=== PATIENT | male | born 1990 | race African-American/Black ===

== ENCOUNTER 2022-09-14 02:31 | Emergency (ER) | payer SELFPAY ==
[2022-09-14] MEDS ORDERED: THIAMINE 200 MG/2 ML INJ ONE (03:09)
[2022-09-14] MEDS ORDERED: FAMOTIDINE 20 MG/2 ML VIAL IV ONE (03:09)
[2022-09-14] MEDS ORDERED: NA CHLORIDE 0.9% 1,000 ML ONE (03:09)
[2022-09-14 04:18] LABS: Absolute Lymphocytes (CBC) 1.7 K/uL (0.7-4.9); Hematocrit 42.6 % (39.6-49.0); MCV 82.7 fL (80-100); MPV 8.7 fL (7.6-11.3); RBC Red Blood Cell Count 5.15 M/uL (4.33-5.43)
[2022-09-14 04:22] LABS: Protime INR 1.07
[2022-09-14 04:38] LABS: ALT/SGPT 39 U/L (16-61); AST/SGOT 24 U/L (15-37); Albumin 4.6 g/dL (3.4-5.0); Alkaline Phosphatase 66 U/L (45-117); BUN Blood Urea Nitrogen 10 mg/dL (7-18); Bicarbonate 22 mEq/L (21-32); Bilirubin Direct 0.2 mg/dL (0-0.2); Bilirubin Total 0.4 mg/dL (0.2-1.0); Glomerular Filtration Rate 66 ml/min (=/>90); Glucose Level 101 mg/dL (74-106); Potassium 3.1 mEq/L (3.5-5.1); Protein, Total 9.2 g/dL (6.4-8.2); Sodium Level 133 mEq/L (136-145)
--- NOTE | 2022-09-14 05:00 | EDPHYS ---
Physician Documentation [facility] Name: Basilio Mckeon Age: 32 yrs Sex: Male : 1990 Arrival Date: 09/14/2022 Time: : Bed 6 Private MD: ED Physician Mohit Smith HPI: 09/14 02:49 This 32 yrs old Male presents to ER via Ambulatory with complaints of ed Breathing Difficulty. 02:49 The patient has shortness of breath at rest. Onset: The symptoms/episode began/occurred ed just prior to arrival. Duration: The symptoms are continuous, but are steadily getting better. The patient's shortness of breath is aggravated by nothing, is alleviated by nothing. Associated signs and symptoms: The patient has no apparent associated signs or symptoms. Severity of symptoms: At their worst the symptoms were mild in the emergency department the symptoms are unchanged. The patient has not experienced similar symptoms in the past. Historical: - Allergies: 02:41 Ibuprofen; aa9 - PSHx: 02:41 None; aa9 - Immunization history:: Client reports having NOT received the Covid vaccine. ROS: 02:51 Constitutional: Negative for fever, chills, and weight loss, Eyes: Negative for injury, ed pain, redness, and discharge, ENT: Negative for injury, pain, and discharge, Neck: Negative for injury, pain, and swelling, Cardiovascular: Negative for chest pain, palpitations, and edema, Abdomen/GI: Negative for abdominal pain, nausea, vomiting, diarrhea, and constipation, Back: Negative for injury and pain, : Negative for injury, bleeding, discharge, and swelling, MS/Extremity: Negative for injury and deformity, Skin: Negative for injury, rash, and discoloration, Neuro: Negative for headache, weakness, numbness, tingling, and seizure, Psych: Negative for depression, anxiety, suicide ideation, homicidal ideation, and hallucinations, Allergy/Immunology: Negative for hives, rash, and allergies, Endocrine: Negative for neck swelling, polydipsia, polyuria, polyphagia, and marked weight changes, Hematologic/Lymphatic: Negative for swollen nodes, abnormal bleeding, and unusual bruising. 02:51 Respiratory: Positive for cough, shortness of breath, at rest. Exam: 02:52 Constitutional: This is a well developed, well nourished patient who is awake, alert, ed and in no acute distress. Head/Face: Normocephalic, atraumatic. Eyes: Pupils equal round and reactive to light, extra-ocular motions intact. Lids and lashes normal. Conjunctiva and sclera are non-icteric and not injected. Cornea within normal limits. Periorbital areas with no swelling, redness, or edema. ENT: Nares patent. No nasal discharge, no septal abnormalities noted. Tympanic membranes are normal and external auditory canals are clear. Oropharynx with no redness, swelling, or masses, exudates, or evidence of obstruction, uvula midline. Mucous membranes moist. Neck: Trachea midline, no thyromegaly or masses palpated, and no cervical lymphadenopathy. Supple, full range of motion without nuchal rigidity, or vertebral point tenderness. No Meningismus. Chest/axilla: Normal chest wall appearance and motion. Nontender with no deformity. No lesions are appreciated. Respiratory: Lungs have equal breath sounds bilaterally, clear to auscultation and percussion. No rales, rhonchi or wheezes noted. No increased work of breathing, no retractions or nasal flaring. Abdomen/GI: Soft, non-tender, with normal bowel sounds. No distension or tympany. No guarding or rebound. No evidence of tenderness throughout. Back: No spinal tenderness. No costovertebral tenderness. Full range of motion. Male : Normal genitalia with no discharge or lesions. Skin: Warm, dry with normal turgor. Normal color with no rashes, no lesions, and no evidence of cellulitis. MS/ Extremity: Pulses equal, no cyanosis. Neurovascular intact. Full, normal range of motion. Neuro: Awake and alert, GCS 15, oriented to person, place, time, and situation. Cranial nerves II-XII grossly intact. Motor strength 5/5 in all extremities. Sensory grossly intact. Cerebellar exam normal. Normal gait. Psych: Awake, alert, with orientation to person, place and time. Behavior, mood, and affect are within normal limits. 02:52 Cardiovascular: Rate: tachycardic, actual rate is 112 bpm, Rhythm: regular, Pulses: Pulses are 4+ in bilateral radial, brachial, femoral, popliteal, posterior tibial and and dorsalis pedis arteries.. Heart sounds: normal, Edema: is not appreciated, JVD: is not appreciated. 02:52 Neuro: Orientation: is normal, appropriate for stated age, no acute changes, Mentation: is normal, appropriate for stated age, no acute changes, Memory: is normal, appropriate for stated age, no acute changes, Cerebellar function: is grossly normal, Motor: is normal, is grossly normal based on the patient's age, no acute changes, moves all fours, strength is normal, Sensation: is normal. 03:09 ECG was reviewed by the Attending Physician. ed 03:30 Musculoskeletal/extremity: DVT Exam: No signs of deep vein thrombosis. no pain, no ed swelling, no tenderness, negative Homans' sign noted on exam, no appreciated bluish discoloration, no erythema, no increased warmth. Vital Signs: 02:39 BP 166 / 107; Pulse 112; Resp 34; Temp 97.6(O); Pulse Ox 100% on R/A; Weight 99.79 kg; aa9 Height 5 ft. 8 in. ; Pain 0/10; 05:07 BP 161 / 92; Pulse 101; Resp 21; Pulse Ox 100% on R/A; lg3 02:39 Body Mass Index 33.45 (99.79 kg, 172.72 cm) aa9 02:39 Pain Scale: Adult aa9 MDM: 02:42 Patient medically screened. ed 02:53 Differential diagnosis: asthma, Bronchitis CHF exacerbation, Chronic Obstructive ed Pulmonary Disease pulmonary edema, Unstable Angina. Antibiotic administration: Not indicated. Differential Diagnosis altered mental status. Immunization status:. Data reviewed: vital signs, nurses notes. Consideration of Admission/Observation Escalation of care including admission/observation considered. I considered the following discharge prescriptions or medication management in the emergency department Medications were administered in the Emergency Department. See MAR. Test considered but Not performed: Ultrasound no us le. Care significantly affected by the following chronic conditions: none. 05:00 ED course: more test needed, ct abd peplvis , fluids , refuses and wants to leave. [facility] 09/14 02:57 Order name: Acetaminophen; Complete Time: 04:58 ed 09/14 02:57 Order name: Basic Metabolic Panel; Complete Time: 04:58 [facility] 09/14 02:57 Order name: CBC with Diff; Complete Time: 04:58 [facility] 09/14 02:57 Order name: ETOH Level; Complete Time: 04:58 [facility] 09/14 02:57 Order name: Hepatic Function; Complete Time: 04:58 [facility] 09/14 02:57 Order name: PT-INR; Complete Time: 04:58 [facility] 09/14 02:57 Order name: Ptt, Activated; Complete Time: 04:58 [facility] 09/14 02:57 Order name: Salicylate; Complete Time: 04:58 [facility] 09/14 02:57 Order name: Chest Single View XRAY [facility] 09/14 02:57 Order name: EKG; Complete Time: 02:58 [facility] 09/14 02:57 Order name: EKG - Nurse/Tech; Complete Time: 03:00 [facility] 09/14 02:57 Order name: IV Saline Lock; Complete Time: 03:00 [facility] 09/14 02:57 Order name: Labs collected and sent; Complete Time: 03:12 [facility] 09/14 02:57 Order name: Suicide Screening ([place]); Complete Time: 03:00 [facility] 09/14 04:59 Order name: PO challenge: gatorade; Complete Time: 05:08 [facility] EC:09 Rate is 111 beats/min. Rhythm is regular. QRS [place] is Normal. NC interval is normal. ed QRS interval is normal. QT interval is normal. No Q waves. T waves are Normal. No ST changes noted. Clinical impression: Sinus tachycardia and No evidence of ischemia. Interpreted by me. Reviewed by me. Administered Medications: 03:12 Drug: Famotidine IVP 20 mg Route: IVP; Site: right antecubital; lg3 03:13 Drug: NS 0.9% IV 1000 ml Route: IV; Rate: 1 bolus; Site: right antecubital; lg3 03:13 Drug: Thiamine IV 100 mg Route: IV; Rate: per protocol; Site: right antecubital; lg3 05:08 Drug: Potassium PO Effervescent Tablet 50 mEq Route: PO; lg3 Disposition Summary: 09/14/22 05:00 Discharge Ordered Location: Home ed Problem: new ed Symptoms: have improved ed Condition: Stable ed Diagnosis - Alcohol abuse with intoxication ed - Essential (primary) hypertension ed - Dyspnea ed - Tobacco abuse counseling ed - Tobacco use ed - Elevated white blood cell count ed - Hypokalemia ed Followup: ed - With: Private Physician - When: 2 - 3 days - Reason: Recheck today's complaints, Continuance of care, Re-evaluation by your physician Discharge Instructions: - Discharge Summary Sheet ed - Alcohol Intoxication ed - Potassium Content of Foods ed - Hypertension, Adult ed - Steps to Quit Smoking ed - Alcohol Intoxication, Hawe-ey-Tart ed - Hypertension, Adult, Umiq-xn-Hsga ed - Steps to Quit Smoking, Koes-qs-Yxrz de - How to Take Your Blood Pressure, Givq-et-Rzxs ed - Hypokalemia ed - Managing Your Hypertension ed Forms: - Medication Reconciliation Form ed - Thank You Letter ed - Antibiotic Education ed - Prescription Opioid Use ed Prescriptions: - Norvasc 5 mg Oral Tablet - take 1 tablet by ORAL route once daily; 20 tablet; Refills: 0, Product ed Selection Permitted - Zofran 4 mg Oral Tablet - take 1 tablet by ORAL route every 12 hours As needed; 20 tablet; Refills: 0, ed Product Selection Permitted Signatures: Dispatcher [employer] Mohit Ly MD MD cha Gibson, Lacie RN RN lg3 Cierra Fernandez RN RN aa9 Corrections: (The following items were deleted from the chart) 02:41 02:41 Allergies: No Known Allergies; aa9 aa9
--- NOTE | 2022-09-14 05:00 | ER ---
Nurse's Notes [facility] Name: Basilio Mckeon Age: 32 yrs Sex: Male : 1990 Arrival Date: 09/14/2022 Time: 02: Bed 6 Private MD: Diagnosis: Alcohol abuse with intoxication;Essential (primary) hypertension;Dyspnea;Tobacco abuse counseling;Tobacco use;Elevated white blood cell count;Hypokalemia Presentation: 09/14 02:39 Chief complaint: Spouse and/or significant other states: He is having trouble aa9 breathing, it just started like an hour ago, he has been drinking bud light all day yesterday since 7 AM. Coronavirus screen: Vaccine status: Patient reports being unvaccinated. Ebola Screen: No symptoms or risks identified at this time. Initial Sepsis Screen: Does the patient meet any 2 criteria? RR > 20 per min. No. Patient's initial sepsis screen is negative. Does the patient have a suspected source of infection? No. Patient's initial sepsis screen is negative. Risk Assessment: Do you want to hurt yourself or someone else? Patient reports no desire to harm self or others. Onset of symptoms was September 14, 2022. 02:39 Method Of Arrival: Ambulatory aa9 02:39 Acuity: GENESIS 2 aa9 Triage Assessment: 02:41 General: Appears uncomfortable, obese, Behavior is cooperative, anxious. Pain: Denies aa9 pain. Neuro: Level of Consciousness is awake, alert, obeys commands, Oriented to person, place, time, situation. Cardiovascular: Patient's skin is warm and dry. Rhythm is sinus tachycardia. Respiratory: Reports shortness of breath at rest Onset: The symptoms/episode began/occurred suddenly, the patient has moderate shortness of breath Denies cough. GI: Abdomen is obese. : No signs and/or symptoms were reported regarding the genitourinary system. Derm: Skin is intact, is healthy with good turgor. Historical: - Allergies: 02:41 Ibuprofen; aa9 - PSHx: 02:41 None; aa9 - Immunization history:: Client reports having NOT received the Covid vaccine. Screenin:43 [facility] ED Fall Risk Assessment (Adult) History of falling in the last 3 months, aa9 including since admission No falls in past 3 months (0 pts) Confusion or Disorientation No (0 pts) Intoxicated or Sedated No (0 pts) Impaired Gait No (0 pts) Mobility Assist Device Used No (0 pt) Altered Elimination No (0 pt) Score/Fall Risk Level 0 - 2 = Low Risk Oriented to surroundings, Maintained a safe environment. Abuse screen: Denies threats or abuse. Denies injuries from another. Nutritional screening: No deficits noted. Tuberculosis screening: No symptoms or risk factors identified. Assessment: 02:42 Cardiovascular: Reports palpitations, shortness of breath, Denies chest pain. aa9 Respiratory: Airway is patent Respiratory effort is even, Respiratory pattern is tachypnea. 05:07 Reassessment: Patient appears in no apparent distress at this time. No changes from lg3 previously documented assessment. Patient and/or family updated on plan of care and expected duration. Pain level reassessed. Patient is alert, oriented x 3, equal unlabored respirations, skin warm/dry/pink. Patient states feeling better. Patient states symptoms have improved. Vital Signs: 02:39 BP 166 / 107; Pulse 112; Resp 34; Temp 97.6(O); Pulse Ox 100% on R/A; Weight 99.79 kg; aa9 Height 5 ft. 8 in. ; Pain 0/10; 05:07 BP 161 / 92; Pulse 101; Resp 21; Pulse Ox 100% on R/A; lg3 02:39 Body Mass Index 33.45 (99.79 kg, 172.72 cm) aa9 02:39 Pain Scale: Adult aa9 ED Course: 02:31 Patient arrived in ED. ja2 02:39 Cierra Fernandez, RN is Primary Nurse. aa9 02:41 Triage completed. aa9 02:41 Mohit Smith MD is Attending Physician. ed 02:42 Arm band placed on right wrist. aa9 02:43 Patient has correct armband on for positive identification. Placed in gown. Bed in low aa9 position. Call light in reach. Side rails up X2. Client placed on continuous cardiac and pulse oximetry monitoring. NIBP monitoring applied. 03:12 Inserted saline lock: 20 gauge in right antecubital area, using aseptic technique. lg3 Blood collected. 03:12 Acetaminophen Sent. lg3 03:12 Basic Metabolic Panel Sent. lg3 03:12 CBC with Diff Sent. lg3 03:12 ETOH Level Sent. lg3 03:12 Hepatic Function Sent. lg3 03:12 PT-INR Sent. lg3 03:12 Ptt, Activated Sent. lg3 03:12 Salicylate Sent. lg3 03:15 Chest Single View XRAY In Process Unspecified. EDMS 05:07 No provider procedures requiring assistance completed. IV discontinued, intact, lg3 bleeding controlled, No redness/swelling at site. Pressure dressing applied. Administered Medications: 03:12 Drug: Famotidine IVP 20 mg Route: IVP; Site: right antecubital; lg3 03:13 Drug: NS 0.9% IV 1000 ml Route: IV; Rate: 1 bolus; Site: right antecubital; lg3 03:13 Drug: Thiamine IV 100 mg Route: IV; Rate: per protocol; Site: right antecubital; lg3 05:08 Drug: Potassium PO Effervescent Tablet 50 mEq Route: PO; lg3 Medication: 05:08 VIS not applicable for this client. lg3 Outcome: 05:00 Discharge ordered by MD. ward 05:07 Discharged to home ambulatory. lg3 05:07 Condition: stable 05:07 Discharge instructions given to patient, Instructed on discharge instructions, follow up and referral plans. medication usage, Demonstrated understanding of instructions, follow-up care, medications, Prescriptions given X 2. 05:08 Patient left the ED. lg3 Signatures: Dispatcher [employer] EDWV Mohit Smith MD MD cha Gibson, Lacie, RN RN lg3 Teresa Hernandez Aylin, RN RN aa9 Corrections: (The following items were deleted from the chart) 02:41 02:41 Allergies: No Known Allergies; aa9 aa9
[2022-09-14] MEDS ORDERED: POTASSIUM 25 MEQ EFFERV TAB ONE (05:06)
[2022-09-14 05:18] VITALS: TEMP 97.6; O2SAT 100
[2022-09-14 05:30] VITALS: BP 161/92
--- NOTE | 2022-09-15 07:03 | EKG ---
Test Date: 2022-09-14 Test Time: 02:42:25 Swift Tender: EDGAR MEASUREMENT RESULTS: Intervals: Rate: 111 TN: 152 QRSD: 86 QT: 380 QTc: 516 Garrett: P: 62 TN: 152 QRS: 92 T: 44 INTERPRETIVE STATEMENTS: Sinus tachycardia Otherwise normal ECG No previous ECG available for comparison Electronically Signed On 09-15-22 07:00:11 CDT by Ernesto Atkinson
--- NOTE | 2022-09-15 09:33 | RAD REPORT ---
EXAM DESCRIPTION: XR CHEST 1 VIEW CLINICAL HISTORY: Male, 32 years old, COUGH TECHNIQUE: 1 view COMPARISON: None. FINDINGS: Support devices: Overlying telemetry leads. Lungs/pleura: No consolidation, pleural effusion, or pneumothorax. Heart and mediastinum: Cardiomediastinal silhouette has normal size and configuration. Other: No acute osseous findings. IMPRESSION: No acute cardiopulmonary findings. Electronically signed by: Nas Singh MD 09/14/2022 3:22 AM CDT Due to temporary technical issues with the PACS/Fluency reporting system, reports are being signed by the in house radiologists without review as a courtesy to insure prompt reporting. The interpreting radiologist is fully responsible for the content of the report.
== END 2022-09-14 05:08 | disposition home or self-care (01) ==
LOC: ER 02:31
DX: F10.129 Alcohol abuse with intoxication, unspecified (principal); E87.6 Hypokalemia; I10 Essential (primary) hypertension; D72.829 Elevated white blood cell count, unspecified; Z72.0 Tobacco use; Z71.6 Tobacco abuse counseling
CPT/HCPCS: 36415; 71045; 80048; 80076; 85025; 85610; 85730; 93005; G0480; J3411; J7030

== ENCOUNTER 2022-09-15 08:42 | Emergency (ER) | payer SELFPAY ==
[2022-09-15 09:27] LABS: Absolute Lymphocytes (CBC) 2.2 K/uL (0.7-4.9); Hematocrit 42.1 % (39.6-49.0); Lymphocytes % 31.6 % (15.3-44.8); MCV 82.5 fL (80-100); MPV 8.1 fL (7.6-11.3); RBC Red Blood Cell Count 5.11 M/uL (4.33-5.43)
[2022-09-15 09:58] LABS: Bilirubin Direct 0.1 mg/dL (0-0.2); Bilirubin Total 0.5 mg/dL (0.2-1.0); Magnesium 1.9 mg/dL (1.6-2.4); Potassium 3.9 mEq/L (3.5-5.1); Protein, Total 8.3 g/dL (6.4-8.2); Thyroid Stimulating Hormone 0.817 uIU/mL (0.358-3.740); Troponin High Sensitivity 7.2 pg/mL (<58.9)
[2022-09-15] MEDS ORDERED: NA CHLORIDE 0.9% 1,000 ML ONE (10:02)
[2022-09-15] MEDS ORDERED: LORazepam 2 MG/ML VIAL ONE (10:02)
--- NOTE | 2022-09-15 10:27 | RAD REPORT ---
EXAM DESCRIPTION: RADChest Single View09/15/2022 9:56 am CLINICAL HISTORY: PALPITATIONS COMPARISON: Chest Single View dated 09/14/2022 TECHNIQUE: Portable AP view of the chest. FINDINGS: The lungs are clear. No pneumothorax or effusion. The cardiomediastinal contours are unrem arkable. IMPRESSION: No acute cardiopulmonary process.
--- NOTE | 2022-09-15 11:04 | ER ---
Nurse's Notes [facility] Name: Basliio Mckeon Age: 32 yrs Sex: Male : 1990 Arrival Date: 09/15/2022 Time: 08:42 Bed 16 Private MD: Diagnosis: Palpitations Presentation: 09/15 08:49 Chief complaint: Patient states: C/O shortness of breathing \T\ palpitations. Coronavirus ld1 screen: At this time, the client does not indicate any symptoms associated with coronavirus-19. Ebola Screen: No symptoms or risks identified at this time. Initial Sepsis Screen: Does the patient meet any 2 criteria? No. Patient's initial sepsis screen is negative. Does the patient have a suspected source of infection? No. Patient's initial sepsis screen is negative. Risk Assessment: Do you want to hurt yourself or someone else? Patient reports no desire to harm self or others. Onset of symptoms was September 15, 2022. 08:49 Method Of Arrival: Ambulatory ld1 08:49 Acuity: GENESIS 3 ld1 Triage Assessment: 08:50 General: Appears in no apparent distress. comfortable, Behavior is calm, cooperative, ld1 appropriate for age. Pain: Denies pain. EENT: No signs and/or symptoms were reported regarding the EENT system. Neuro: Level of Consciousness is awake, alert, obeys commands, Oriented to person, place, time, situation. Cardiovascular: Capillary refill < 3 seconds. Respiratory: Reports shortness of breath at rest on exertion Airway is patent Respiratory effort is even, unlabored, Onset: The symptoms/episode began/occurred suddenly, the patient has mild shortness of breath. GI: Abdomen is round non-distended. : No signs and/or symptoms were reported regarding the genitourinary system. Derm: No signs and/or symptoms reported regarding the dermatologic system. Musculoskeletal: No signs and/or symptoms reported regarding the musculoskeletal system. Historical: - Allergies: 08:50 Ibuprofen; ld1 - Home Meds: 08:50 None [Active]; ld1 - PMHx: 08:50 None; ld1 - PSHx: 08:50 None; ld1 - Immunization history:: Adult Immunizations up to date, Client reports receiving the 2nd dose of the Covid vaccine. - Social history:: Smoking status: Patient reports the use of cigarette tobacco products, smokes two packs cigarettes per day. Patient uses alcohol, occasionally. Screenin:21 [facility] ED Fall Risk Assessment (Adult) Score/Fall Risk Level 0 - 2 = Low Risk. Abuse eh3 screen: Denies threats or abuse. Denies injuries from another. Nutritional screening: No deficits noted. Tuberculosis screening: No symptoms or risk factors identified. Assessment: 09:21 General: Appears in no apparent distress. uncomfortable, Behavior is calm, cooperative, eh3 appropriate for age. Pain: Denies pain. Neuro: Level of Consciousness is awake, alert, obeys commands, Oriented to person, place, time, situation. Cardiovascular: Reports lightheadedness, palpitations, shortness of breath, Capillary refill < 3 seconds Patient's skin is warm and dry. Rhythm is sinus rhythm. Respiratory: Airway is patent Respiratory effort is even, unlabored, Respiratory pattern is regular, symmetrical, Breath sounds are clear bilaterally. GI: Abdomen is round non-distended. : No signs and/or symptoms were reported regarding the genitourinary system. EENT: No signs and/or symptoms were reported regarding the EENT system. Derm: Skin is healthy with good turgor, Skin is pink, warm \T\ dry. Musculoskeletal: Circulation, motion, and sensation intact. 09:45 Reassessment: Patient appears in no apparent distress at this time. Patient and/or eh3 family updated on plan of care and expected duration. Pain level reassessed. Patient is alert, oriented x 3, equal unlabored respirations, skin warm/dry/pink. 10:45 Reassessment: Patient appears in no apparent distress at this time. Patient and/or eh3 family updated on plan of care and expected duration. Pain level reassessed. Patient is alert, oriented x 3, equal unlabored respirations, skin warm/dry/pink. Vital Signs: 08:50 BP 130 / 91; Pulse 78; Resp 18; Temp 98.1(TE); Pulse Ox 100% on R/A; Weight 99.79 kg; ld1 Height 5 ft. 8 in. ; Pain 0/10; 09:45 BP 129 / 94; Pulse 68; Resp 18; Pulse Ox 100% on R/A; eh3 10:45 BP 128 / 81; Pulse 64; Resp 18; Pulse Ox 100% on R/A; eh3 08:50 Body Mass Index 33.45 (99.79 kg, 172.72 cm) ld1 08:50 Pain Scale: Adult ld1 ED Course: 08:44 Patient arrived in ED. rg4 08:45 Lakeshia Felix [facility]-C [facility] jewel 08:45 Primitivo Daugherty DO is Attending Physician. kb 08:50 Triage completed. ld1 08:50 Arm band placed on right wrist. ld1 08:59 Patient has correct armband on for positive identification. Bed in low position. Call mm9 light in reach. Side rails up X 1. Warm blanket given. Client placed on continuous cardiac and pulse oximetry monitoring. NIBP monitoring applied. monitor and storage bin tender on. Pulse ox on. NIBP on. 08:59 EKG done, by ED staff, reviewed by Lakeshia ROMANO. mm9 09:09 Nikkie Butler, RN is Primary Nurse. eh3 09:20 Inserted saline lock: 20 gauge in left antecubital area, using aseptic technique. Blood eh3 collected. 09:58 XRAY Chest (1 view) In Process Unspecified. EDMS 11:08 No provider procedures requiring assistance completed. IV discontinued, intact, eh3 bleeding controlled, No redness/swelling at site. Pressure dressing applied. Administered Medications: 09:58 Drug: NS 0.9% IV 1000 ml Route: IV; Rate: 1000 ml; Site: left antecubital; eh3 11:08 Follow up: IV Status: Completed infusion; IV Intake: 600ml eh3 09:58 Drug: Ativan IVP 0.5 mg Route: IVP; Site: left antecubital; eh3 10:56 Follow up: Response: No adverse reaction eh3 Medication: 11:08 VIS not applicable for this client. eh3 Intake: 11:08 IV: 600ml; Total: 600ml. eh3 Outcome: 11:03 Discharge ordered by . kb 11:08 Discharged to home ambulatory. eh3 11:08 Condition: stable 11:08 Discharge instructions given to patient, significant other, Instructed on discharge instructions, follow up and referral plans. Demonstrated understanding of instructions, follow-up care. 11:18 Patient left the ED. eh3 Signatures: Dispatcher [employer] EDMS Lakeshia Felix FNP-C FNP-Becky Cheng rg4 Lizbet Daugherty, RN RN ld1 Nikkie Butler, RN RN eh3 Adán, Karin mm9
--- NOTE | 2022-09-15 11:04 | EDPHYS ---
Physician Documentation [facility] Name: Basilio Mckeon Age: 32 yrs Sex: Male : 1990 Arrival Date: 09/15/2022 Time: 08:42 Bed 16 Private MD: ED Physician Primitivo Daugherty HPI: 09/15 09:30 This 32 yrs old Black Male presents to ER via Ambulatory with complaints of Breathing kb Difficulty. 09:30 The patient presents with a history of irregular heart beat. Context: The symptoms kb occur with light activity. Onset: The symptoms/episode began/occurred 2 day(s) ago. Duration: The patient or guardian reports multiple episodes, that are intermittent. Modifying factors: The symptoms are aggravated by light activity, The symptoms are alleviated by rest. Associated signs and symptoms: Pertinent positives: SOB, Pertinent negatives: chest pain. Severity of symptoms: At their worst the symptoms were moderate in the emergency department the symptoms are unchanged. The patient has not experienced similar symptoms in the past. The patient has been recently seen at the [facility] Emergency Department, this week. Pt reports palpitations and shortness of breath that started on morning around 0100. States he was seen here at that time and thought the symptoms were due to be intoxicated, but has not had any ETOH since then and the symptoms have continued. States he felt fine when he woke up, but once he got out of bed and brushed his teeth the symptoms returned. Denies chest pain.. Historical: - Allergies: 08:50 Ibuprofen; ld1 - Home Meds: 08:50 None [Active]; ld1 - PMHx: 08:50 None; ld1 - PSHx: 08:50 None; ld1 - Immunization history:: Adult Immunizations up to date, Client reports receiving the 2nd dose of the Covid vaccine. - Social history:: Smoking status: Patient reports the use of cigarette tobacco products, smokes two packs cigarettes per day. Patient uses alcohol, occasionally. ROS: 08:52 Constitutional: Negative for fever, chills, and weight loss. kb 08:52 Cardiovascular: Positive for palpitations, Negative for chest pain. 08:52 Respiratory: Positive for shortness of breath. 08:52 All other systems are negative. Exam: 08:52 Constitutional: This is a well developed, well nourished patient who is awake, alert, kb and in no acute distress. Head/Face: Normocephalic, atraumatic. ENT: Moist Mucous membranes Cardiovascular: Regular rate and rhythm with a normal S1 and S2. No gallops, murmurs, or rubs. No pulse deficits. Respiratory: Respirations even and unlabored. No increased work of breathing. Talking in full sentences Abdomen/GI: Soft, non-tender. No distention Skin: Warm, dry with normal turgor. Normal color. MS/ Extremity: Pulses equal, no cyanosis. Neurovascular intact. Full, normal range of motion. Neuro: Awake and alert, GCS 15, oriented to person, place, time, and situation. Moves all extremities. Normal gait. 08:52 Respiratory: Breath sounds: are clear throughout. 09:30 ECG was reviewed by the Attending Physician. Vital Signs: 08:50 BP 130 / 91; Pulse 78; Resp 18; Temp 98.1(TE); Pulse Ox 100% on R/A; Weight 99.79 kg; ld1 Height 5 ft. 8 in. ; Pain 0/10; 09:45 BP 129 / 94; Pulse 68; Resp 18; Pulse Ox 100% on R/A; eh3 10:45 BP 128 / 81; Pulse 64; Resp 18; Pulse Ox 100% on R/A; eh3 08:50 Body Mass Index 33.45 (99.79 kg, 172.72 cm) ld1 08:50 Pain Scale: Adult ld1 MDM: 08:45 Patient medically screened. 09:30 Data reviewed: vital signs, nurses notes. kb 09:32 Differential diagnosis: arrythmia, dehydration, stress disorder. kb 11:02 Counseling: I had a detailed discussion with the patient and/or guardian regarding: the kb historical points, exam findings, and any diagnostic results supporting the discharge/admit diagnosis, lab results, radiology results, the need for outpatient follow up, a hospital fellow, a family practitioner, to return to the emergency department if symptoms worsen or persist or if there are any questions or concerns that arise at home. 09/15 08:52 Order name: Basic Metabolic Panel; Complete Time: 10:02 kb 09/15 08:52 Order name: CBC with Diff; Complete Time: 09:29 kb 09/15 08:52 Order name: D-Dimer; Complete Time: 09:33 kb 09/15 08:52 Order name: LFT's; Complete Time: 10:02 kb 09/15 08:52 Order name: Magnesium; Complete Time: 10:02 kb 09/15 08:52 Order name: NT PRO-BNP; Complete Time: 10:02 kb 09/15 08:52 Order name: Troponin HS; Complete Time: 10:02 kb 09/15 08:52 Order name: TSH; Complete Time: 10:02 kb 09/15 08:52 Order name: XRAY Chest (1 view); Complete Time: 10:29 kb 09/15 08:52 Order name: EKG; Complete Time: 08:53 kb 09/15 08:52 Order name: Cardiac monitoring; Complete Time: 08:54 kb 09/15 08:52 Order name: EKG - Nurse/Tech; Complete Time: 09:06 kb 09/15 08:52 Order name: IV Saline Lock; Complete Time: 09:20 kb 09/15 08:52 Order name: Labs collected and sent; Complete Time: 09:20 kb 09/15 08:52 Order name: O2 Per Protocol; Complete Time: 08:54 kb 09/15 08:52 Order name: O2 Sat Monitoring; Complete Time: 08:54 kb EC:30 Rate is 60 beats/min. Rhythm is regular. QRS [employer] is Normal. MD interval is normal at kb 142 msec. QRS interval is normal at 82 msec. QT interval is normal at 422 msec. Administered Medications: 09:58 Drug: NS 0.9% IV 1000 ml Route: IV; Rate: 1000 ml; Site: left antecubital; 3 11:08 Follow up: IV Status: Completed infusion; IV Intake: 600ml [facility] 09:58 Drug: Ativan IVP 0.5 mg Route: IVP; Site: left antecubital; 3 10:56 Follow up: Response: No adverse reaction 3 Disposition: 10:43 Co-signature as Attending Physician, Primitivo Daugherty DO I reviewed the patient's care ms3 provided by Advanced Practice Provider \T\ agree w/ the diagnosis \T\ care plan. I personally saw the pt \T\ performed a substantive portion of the visit, incldng all aspects of the (History/Exam/Medical Decision Making). PA/EXHAUST MACHINE OPERATOR's history reviewed, patient interviewed, and examined. HPI: 32-year-old male with no past medical history presents for 2 days of irregular heartbeat. Patient denies pain at this time. Patient denies alleviating or inciting factors. My personal exam of patient reveals: On exam patient is alert and orient x4, no apparent distress, nontoxic-appearing, speaking full sentences. Heart rate and rhythm are regular without murmurs rubs or gallops. Lungs are clear to auscultation bilaterally. Abdomen is nontender to palpation with bowel sounds present. Skin is dry and without rashes. traffic monitor specialist showing normal sinus rhythm with heart rate of 64. I agree with assessment and care plan and confirm the diagnosis (es) above. Disposition Summary: 09/15/22 11:03 Discharge Ordered Location: Home kb Condition: Stable kb Diagnosis - Palpitations kb Followup: kb - With: Emergency Department - When: As needed - Reason: Worsening of condition Followup: kb - With: Private Physician - When: 2 - 3 days - Reason: Recheck today's complaints, Continuance of care, Re-evaluation by your physician Discharge Instructions: - Discharge Summary Sheet kb - Palpitations, Twrc-ma-Afic kb Forms: - Medication Reconciliation Form kb - Thank You Letter kb - Antibiotic Education kb - Prescription Opioid Use kb Signatures: Dispatcher [employer] EDMS Lakeshia Felix, HARRY-Henrik MCDONALD-Primitivo Cherry, DO DO ms3 Lizbet Daugherty, RN RN ld1 Nikkie Butler, RN RN eh3
[2022-09-15 11:22] VITALS: TEMP 98.1; O2SAT 100
[2022-09-15 11:26] VITALS: BP 128/81
--- NOTE | 2022-09-16 15:21 | EKG ---
Test Date: 2022-09-15 Test Time: 09:06:02 Clicker Operator: LESLIE MEASUREMENT RESULTS: Intervals: Rate: 61 HI: 140 QRSD: 82 QT: 386 QTc: 388 [place]: P: 64 HI: 140 QRS: 80 T: 7 INTERPRETIVE STATEMENTS: Normal sinus rhythm T wave abnormality, consider lateral ischemia Abnormal ECG Compared to ECG 09/14/2022 02:42:25 T-wave abnormality now present Possible ischemia now present Sinus tachycardia no longer present Electronically Signed On 09-16-22 15:20:45 CDT by Junaid Chaney
== END 2022-09-15 11:18 | disposition home or self-care (01) ==
LOC: ER 08:42
DX: R00.2 Palpitations (principal); F17.210 Nicotine dependence, cigarettes, uncomplicated; Z88.6 Allergy status to analgesic agent
CPT/HCPCS: 36415; 71045; 80048; 80076; 83735; 83880; 84443; 84484; 85025; 85379; 93005; J7030

== ENCOUNTER 2022-09-17 00:43 | Emergency (ER) | payer SELFPAY ==
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
--- NOTE | 2022-09-17 02:41 | ER ---
Nurse's Notes [facility] Name: Basilio Mckeon Age: 32 yrs Sex: Male : 1990 Arrival Date: 09/17/2022 Time: 00:43 Bed 11 Private MD: Diagnosis: Dyspnea, unspecified;Anxiety about health Presentation: 09/17 00:55 Chief complaint: Patient states: Difficulty breathing after waking up approx 30 minutes cg ago seen at this facility and [facility] within the past 5 days for similar symptom reports all lab work and CT scans were reported a negative. Coronavirus screen: Vaccine status: Patient reports being unvaccinated. Ebola Screen: Patient negative for fever greater than or equal to 101.5 degrees Fahrenheit, and additional compatible Ebola Virus Disease symptoms. Initial Sepsis Screen: Does the patient meet any 2 criteria? No. Patient's initial sepsis screen is negative. Does the patient have a suspected source of infection? No. Patient's initial sepsis screen is negative. Risk Assessment: Do you want to hurt yourself or someone else? Patient reports no desire to harm self or others. 00:55 Method Of Arrival: Ambulatory cg 00:55 Acuity: GENESIS 3 cg Triage Assessment: 00:58 General: Appears in no apparent distress. well groomed, well developed, Behavior is cg anxious. Pain: Denies pain. Respiratory: Reports shortness of breath at rest Airway is patent Trachea midline Respiratory effort is even, unlabored, Respiratory pattern is regular, symmetrical, Onset: The symptoms/episode began/occurred just prior to arrival, the patient has mild shortness of breath. Historical: - Allergies: 00:57 Ibuprofen; cg - Home Meds: 00:57 None [Active]; cg - PMHx: 00:57 None; cg - PSHx: 00:57 None; cg - Immunization history:: Adult Immunizations not up to date. - Social history:: Smoking status: Patient/guardian denies using tobacco, Patient/guardian denies using street drugs, IV drugs, caffeine, over the counter diet medications, tobacco products. - Family history:: not pertinent. Vital Signs: 00:55 BP 135 / 89; Pulse 57; Resp 18; Temp 98.4; Pulse Ox 100% on R/A; Weight 99.79 kg (R); cg Height 5 ft. 8 in. ; Pain 0/10; 00:55 Body Mass Index 33.45 (99.79 kg, 172.72 cm) cg 00:55 Pain Scale: Adult cg ED Course: 00:47 Patient arrived in ED. jj6 00:57 Triage completed. cg 01:17 Suhail Head MD is Attending Physician. sp4 Administered Medications: No medications were administered Outcome: 02:41 Discharge ordered by . sp4 02:52 Patient left the ED. kl Signatures: Hailey Beatty RN RN Jessica Wheeler RN RN Carolyn Valencia [email or web address] Suhail Head MD MD sp4
--- NOTE | 2022-09-17 02:41 | EDPHYS ---
Physician Documentation [facility] Name: Basilio Mckeon Age: 32 yrs Sex: Male : 1990 Arrival Date: 09/17/2022 Time: 00:43 Bed 11 Private MD: ED Physician Suhail Head HPI: 09/17 01:17 This 32 yrs old Black Male presents to ER via Ambulatory with complaints of Shortness sp4 Of Breath. 01:17 . sp4 02:36 32-year-old male no significant past medical history presents for cute onset shortness sp4 of breath, patient presented here as well for shortness of breath on 09/15/2022 complaining essentially that intoxication caused them to get shortness of breath. Patient received full work-up here on 09/15/2022 including labs, chest x-ray, EKG, and he was given Ativan IV, and after uneventful ER stay and normal work-up he was discharged home with instructions regarding shortness of breath and palpitations. . Historical: - Allergies: 00:57 Ibuprofen; cg - Home Meds: 00:57 None [Active]; cg - PMHx: 00:57 None; cg - PSHx: 00:57 None; cg - Immunization history:: Adult Immunizations not up to date. - Social history:: Smoking status: Patient/guardian denies using tobacco, Patient/guardian denies using street drugs, IV drugs, caffeine, over the counter diet medications, tobacco products. - Family history:: not pertinent. ROS: 02:36 Constitutional: Negative for fever, chills, and weight loss, Eyes: Negative for injury, sp4 pain, redness, and discharge, ENT: Negative for injury, pain, and discharge, Neck: Negative for injury, pain, and swelling, Cardiovascular: Negative for chest pain, palpitations, and edema, Respiratory: Negative for cough, wheezing, and pleuritic chest pain, positive for shortness of breath Abdomen/GI: Negative for abdominal pain, nausea, vomiting, diarrhea, and constipation, Back: Negative for injury and pain, : Negative for injury, bleeding, discharge, and swelling, MS/Extremity: Negative for injury and deformity, Skin: Negative for injury, rash, and discoloration, Neuro: Negative for headache, weakness, numbness, tingling, and seizure, Psych: Negative for depression, anxiety, Allergy/Immunology: Negative for hives, rash, and allergies Endocrine: Negative for neck swelling, polydipsia, polyuria, polyphagia, and weight changes Hematologic/Lymphatic: Negative for swollen nodes, abnormal bleeding, and unusual bruising Exam: 02:36 Constitutional: This is a well developed, well nourished patient who is awake, alert, sp4 and in no acute distress. Head/Face: Normocephalic, atraumatic. Eyes: Pupils equal round and reactive to light, extra-ocular motions intact. Lids and lashes normal. Conjunctiva and sclera are not injected. Cornea within normal limits. Periorbital areas with no swelling, redness, or edema. ENT: Nares patent. No nasal discharge, no septal abnormalities noted. Tympanic membranes are normal and external auditory canals are clear. Oropharynx with no redness, swelling, or masses, exudates, or evidence of obstruction, uvula midline. Mucous membranes moist. Neck: Trachea midline, no thyromegaly or masses palpated, and no cervical lymphadenopathy. Supple, full range of motion without nuchal rigidity, or vertebral point tenderness. No Meningismus. Chest/axilla: Normal chest wall appearance and motion. Nontender with no deformity. No lesions are appreciated. Cardiovascular: Regular rate and rhythm with a normal S1 and S2. No gallops, murmurs, or rubs. Normal PMI, no JVD. No pulse deficits. Respiratory: Lungs have equal breath sounds bilaterally, clear to auscultation and percussion. No rales, rhonchi or wheezes noted. No increased work of breathing, no retractions or nasal flaring. Abdomen/GI: Soft, non-tender, with normal bowel sounds. No distension or tympany. No guarding or rebound. No evidence of tenderness throughout. Back: No spinal tenderness. No costovertebral tenderness. Skin: Warm, dry with normal turgor. Normal color with no rashes, no lesions, and no evidence of cellulitis. MS/ Extremity: Pulses equal, no cyanosis. Neurovascular intact. Full, normal range of motion. Neuro: Awake and alert, GCS 15, oriented to person, place, time, and situation. Cranial nerves II-XII grossly intact. Motor strength 5/5 in all extremities. Sensory grossly intact. Psych: Awake, alert, with orientation to person, place and time. Behavior, mood, and affect are within normal limits Vital Signs: 00:55 BP 135 / 89; Pulse 57; Resp 18; Temp 98.4; Pulse Ox 100% on R/A; Weight 99.79 kg (R); cg Height 5 ft. 8 in. ; Pain 0/10; 00:55 Body Mass Index 33.45 (99.79 kg, 172.72 cm) cg 00:55 Pain Scale: Adult cg MDM: 01:51 Patient medically screened. sp4 02:36 Differential diagnosis: Anxiety Reaction Bronchitis Myocardial Infarction Psychogenic sp4 Unstable Angina. Data reviewed: vital signs, nurses notes. ED course: We were about ready to order work-up on the patient but patient walked out of the ER preferring to leave without work up . Administered Medications: No medications were administered Disposition Summary: 09/17/22 02:41 Discharge Ordered Location: Home sp4 Problem: new sp4 Symptoms: have improved sp4 Condition: Stable sp4 Diagnosis - Dyspnea, unspecified sp4 - Anxiety about health sp4 Followup: sp4 - With: Private Physician - When: 7 - 10 days - Reason: Recheck today's complaints Discharge Instructions: - Discharge Summary Sheet sp4 - Shortness of Breath, Adult sp4 Forms: - Thank You Letter sp4 Signatures: Jessica Raymond RN RN Suhail Head MD MD sp4
[2022-09-17 03:04] VITALS: BP 135/89; TEMP 98.4; O2SAT 100
--- NOTE | 2022-09-18 12:44 | EKG ---
Test Date: 2022-09-15 Test Time: 09:06:41 Armature Winder Repairer: LESLIE MEASUREMENT RESULTS: Intervals: Rate: 60 [place]: 142 QRSD: 82 QT: 422 QTc: 422 [place]: P: 49 [place]: 142 QRS: 79 T: 2 INTERPRETIVE STATEMENTS: Normal sinus rhythm Nonspecific T wave abnormality Abnormal ECG Compared to ECG 09/15/2022 09:06:02 Possible ischemia no longer present T-wave abnormality still present Electronically Signed On 09-18-22 12:37:50 CDT by Ernesto Atkinson
== END 2022-09-17 02:52 | disposition home or self-care (01) ==
LOC: ER 00:43
DX: R06.00 Dyspnea, unspecified (principal); F41.9 Anxiety disorder, unspecified
CPT/HCPCS: 93005; 99281